=== PATIENT | female | born 1970 | race Two or more races ===

== ENCOUNTER 2017-05-10 10:29 | Emergency (ER) | payer MEDICAID ==
[~2017-05-10] VITALS: Ht 167.6 cm; Wt 61.2 kg
[2017-05-10 10:29] VITALS: BP 130/88
== END 2017-05-10 11:13 | disposition home or self-care (01) ==
LOC: ER 10:31
DX: B95.8 Unspecified staphylococcus as the cause of diseases classified elsewhere (principal); J34.89 Other specified disorders of nose and nasal sinuses
CPT/HCPCS: 99283; A4606; Z7610